=== PATIENT | female | born 1965 | race Caucasian/White ===

== ENCOUNTER 2016-05-25 17:08 | Emergency (ER) | payer MEDICAID ==
[~2016-05-25] VITALS: Ht 162.6 cm; Wt 81.6 kg
[2016-05-25 17:37] LABS: BASOPHILS # (AUTO) 0.1 /CMM (0.0-0.2); BASOPHILS % (AUTO) 1.1 % (0.0-2.0); DIFF TOTAL % 100 %; EOSINOPHILS # (AUTO) 0.1 /CMM (0.0-0.7); EOSINOPHILS % (AUTO) 0.9 % (0.0-6.0); HEMATOCRIT 38 % (33-45); HEMOGLOBIN 13.2 g/dL (11.5-14.8); LYMPHOCYTES # (AUTO) 2.2 /CMM (0.8-4.8); LYMPHOCYTES % (AUTO) 16.5 % (20.0-44.0); MEAN CORPUSCULAR HEMOGLOBIN 32 PG (26.0-33.0); MEAN CORPUSCULAR HGB CONC 35 g/dl (31.0-36.0); MEAN CORPUSCULAR VOLUME 91 fL (82-100); MONOCYTES # (AUTO) 0.7 /CMM (0.1-1.30); MONOCYTES % (AUTO) 5.1 % (2.0-12.0); NEUTROPHILS % (AUTO) 76.4 % (43.0-81.0); PLATELET COUNT (AUTO) 301 /CMM (150-450); RED BLOOD CELL COUNT(AUTO) 4.19 MIL/uL (4.0-5.2); WHITE BLOOD COUNT (AUTO) 13.1 K/uL (4.3-11.0)
[2016-05-25 17:48] LABS: ANION GAP 16 (5-14); CALCIUM, SERUM 9.4 mg/dL (8.5-10.1); CARBON DIOXIDE 26 mmol/L (21-32); CHLORIDE 104 mmol/L (98-107); CREATININE 0.7 mg/dL (0.6-1.3); GFR 88 mL/min (>60); GLUCOSE 100 mg/dL (74-106); SODIUM SERUM 142 mmol/L (136-145); UREA NITROGEN, BLOOD 16 mg/dL (7-18)
[2016-05-25 18:02] LABS: ALANINE AMINOTRANSFERASE 23 U/L (12-78); ALBUMIN 4.4 g/dL (3.4-5.0); ASPARTATE AMINOTRANSFERASE 17 U/L (15-37); BILIRUBIN,TOTAL 0.3 mg/dL (0.2-1.0); SALICYLATE 3.3 mg/dL (2.8-20.0); TOTAL PROTEIN, SERUM 8.5 g/dL (6.4-8.2)
[2016-05-25 18:06] LABS: ACETAMINOPHEN 0 ug/ml (10-30); INDIRECT BILIRUBIN 0.3 mg/dL (0.0-1.1)
[2016-05-25] MEDS ORDERED: diphenhydrAMINE HCL 50 MG/ML VIAL IM ONE ×2 (18:30→19:30)
[2016-05-25] MEDS ORDERED: LORAZEPAM INJ 2 MG/ML VIAL IM ONE ×2 (18:30→19:30)
[2016-05-25] MEDS ORDERED: HALOPERIDOL LACTATE INJ 5 MG/ML VIAL IM ONE (18:30)
[2016-05-25] MEDS ORDERED: LORAZEPAM INJ 2 MG/ML VIAL ONE ×2 (18:44→19:20)
[2016-05-25] MEDS ORDERED: diphenhydrAMINE HCL 50 MG/ML VIAL ONE ×2 (18:44→19:19)
[2016-05-25] MEDS ORDERED: HALOPERIDOL LACTATE INJ 5 MG/ML VIAL ONE (18:44)
[2016-05-25 20:25] LABS: KETONES,URINE Trace (NEGATIVE); LEUKOCYTE ESTERASE ,URINE Negative (NEGATIVE)
[2016-05-25 20:28] LABS: ADD UA MICROSCOPIC YES; PREGNANCY TEST URINE QUAL NEGATIVE (NEGATIVE)
[2016-05-25 20:31] LABS: CANNABINOID, URINE NEGATIVE (NEGATIVE); PHENCYCLIDINE SCREEN,URINE NEGATIVE (NEGATIVE)
[2016-05-25 20:38] LABS: ADD URINE CULTURE NO; RBC,URINE 0-2 /HPF (0-2); WBC,URINE 0-2 /HPF (0-3)
[2016-05-26] MEDS ORDERED: HALOPERIDOL LACTATE INJ 5 MG/ML VIAL IM ONE (02:00)
[2016-05-26] MEDS ORDERED: diphenhydrAMINE HCL 50 MG/ML VIAL IM ONE (02:30)
[2016-05-26] MEDS ORDERED: LORAZEPAM INJ 2 MG/ML VIAL IM ONE (02:30)
[2016-05-26] MEDS ORDERED: LORAZEPAM INJ 2 MG/ML VIAL ONE (02:41)
[2016-05-26] MEDS ORDERED: diphenhydrAMINE HCL 50 MG/ML VIAL ONE (02:41)
[2016-05-26] MEDS ORDERED: HALOPERIDOL LACTATE INJ 5 MG/ML VIAL ONE (02:41)
[2016-05-26] MEDS ORDERED: OLANZAPINE 5 MG TABLET ONE (11:25)
[2016-05-26] MEDS ORDERED: OLANZAPINE 5 MG TABLET PO ONE (11:30)
[2016-05-26 12:28] VITALS: BP 110/79
== END 2016-05-26 12:30 | disposition home or self-care (01) ==
LOC: ER 17:11
DX: B86 Scabies (principal); F79 Unspecified intellectual disabilities; F31.9 Bipolar disorder, unspecified
CPT/HCPCS: 36415; 80048; 80076; 80305; 80329; 81001; 84703; 85025; 96372 ×8; 99284; A4606; G0480 ×2; J1200 ×2; J1630 ×2; J2060 ×2; Z7610; 81000-TC; G6039-TC

== ENCOUNTER 2018-04-17 19:19 | Emergency (ER) | payer BC, MEDICAID ==
[~2018-04-17] VITALS: Ht 157.5 cm; Wt 59.0 kg
[2018-04-17] MEDS: POTASSIUM CL. PREMIX PERIPHER. 50 ML IV SCH ×3 (00:24→23:24)
--- NOTE | 2018-04-17 19:26 | NUR ---
PT [id number] WITH [employer] FOR S/I, NO PLANS, -H/I, PT ACTING BIZARRE, NOT ANSWERING QUESTIONS APPROPRIATELY, RESPIRATIONS EVEN AND UNLABORED, NO SOB, PT ON MONITOR, NAD NOTED, VSS, PENDING ER PROVIDER PAULINO
[2018-04-17 19:54] LABS: BASOPHILS % (AUTO) 0.5 % (0.0-2.0); EOSINOPHILS % (AUTO) 0.9 % (0.0-6.0); HEMATOCRIT 38 % (33-45); HEMOGLOBIN 12.6 g/dL (11.5-14.8); LYMPHOCYTES # (AUTO) 1.7 /CMM (0.8-4.8); LYMPHOCYTES % (AUTO) 18.4 % (20.0-44.0); MEAN CORPUSCULAR HGB CONC 33 g/dl (31.0-36.0); MEAN CORPUSCULAR VOLUME 87 fL (82-100); MONOCYTES # (AUTO) 0.5 /CMM (0.1-1.30); MONOCYTES % (AUTO) 5.8 % (2.0-12.0); NEUTROPHILS # (AUTO) 6.7 /CMM (1.8-8.9); NEUTROPHILS % (AUTO) 74.4 % (43.0-81.0); PLATELET COUNT (AUTO) 467 /CMM (150-450); RED BLOOD CELL COUNT(AUTO) 4.38 MIL/uL (4.0-5.2)
[2018-04-17] MEDS ORDERED: OLANZAPINE 10 MG VIAL IM ONE ×3 (19:57→21:00)
[2018-04-17 20:08] LABS: ALBUMIN 2.7 g/dL (3.4-5.0); BILIRUBIN,TOTAL 0.1 mg/dL (0.2-1.0); CALCIUM, SERUM 8.7 mg/dL (8.5-10.1); CREATININE 0.4 mg/dL (0.6-1.3); SALICYLATE 3.3 mg/dL (2.8-20.0)
[2018-04-17 20:10] LABS: POTASSIUM 2.7 mmol/L (3.5-5.1)
[2018-04-17] MEDS ORDERED: POTASSIUM CHLORIDE 20 MEQ TAB.PRT.SR PO ONE (20:30)
--- NOTE | 2018-04-17 20:50 | NUR ---
URINE COLLECTED AND SENT TO LAB
[2018-04-17] MEDS ORDERED: POTASSIUM CL. PREMIX PERIPHER. 100 ML ONE (20:57)
[2018-04-17 21:00] LABS: APPEARANCE,URINE Slightly Cloudy (CLEAR); BILIRUBIN,URINE Negative (NEGATIVE); BLOOD, URINE Trace-intact Ery/uL (NEGATIVE); COLOR,URINE Yellow (YELLOW); KETONES,URINE Negative (NEGATIVE); LEUKOCYTE ESTERASE ,URINE Small (NEGATIVE); NITRITE, URINE Negative (NEGATIVE); PROTEIN,URINE Negative (NEGATIVE); UGLUCOSE Negative (NEGATIVE)
[2018-04-17] MEDS ORDERED: LORAZEPAM INJ 2 MG/ML VIAL IM ONE (21:00)
[2018-04-17 21:01] LABS: BACTERIA,URINE Few /HPF (None Seen); SQUAMOUS EPITHELIAL CELL,UR Few /HPF (None Seen)
[2018-04-17 21:02] LABS: MUCUS,URINE Few /LPF (None Seen)
[2018-04-17] MEDS ORDERED: POTASSIUM CL. PREMIX PERIPHER. 50 ML ONE ×2 (21:15→23:23)
[2018-04-17] MEDS ORDERED: LORAZEPAM INJ 2 MG/ML VIAL ONE (21:22)
--- NOTE | 2018-04-17 21:24 | NUR ---
PT REFUSED TO TAKE ANY PO MEDS, MARSII TRANSIT MIXER OPERATOR MADE AWARE. PER MARSII WILL CHANGE TO IVPB INSTEAD
--- NOTE | 2018-04-17 22:24 | NUR ---
Patient is resting comfortably in bed with eyes closed. Easily aroused. VSS
--- NOTE | 2018-04-17 23:31 | NUR ---
REPORT GIVEN TO ADRI MA FOR VEGA
[2018-04-18] MEDS: POTASSIUM CL. PREMIX PERIPHER. 50 ML IV SCH (00:40)
[2018-04-18 03:29] LABS: CALCIUM, SERUM 8.6 mg/dL (8.5-10.1); CREATININE 0.5 mg/dL (0.6-1.3); POTASSIUM 3.7 mmol/L (3.5-5.1)
[2018-04-18 06:28] VITALS: BP 112/78
== END 2018-04-18 06:29 | disposition home or self-care (01) ==
LOC: ER 19:20 → EDBD 19:20 → ER 04-18 06:29
DX: E87.6 Hypokalemia (principal); N39.0 Urinary tract infection, site not specified; F31.9 Bipolar disorder, unspecified; F19.10 Other psychoactive substance abuse, uncomplicated; R19.02 Left upper quadrant abdominal swelling, mass and lump; M54.5 Low back pain; G89.29 Other chronic pain; I10 Essential (primary) hypertension; J45.909 Unspecified asthma, uncomplicated; F29 Unspecified psychosis not due to a substance or known physiological condition; R00.1 Bradycardia, unspecified; F12.10 Cannabis abuse, uncomplicated; Z88.2 Allergy status to sulfonamides; Z59.0 Homelessness
CPT/HCPCS: 36415 ×2; 80048 ×2; 80076; 80305; 80329; 81001; 85025; 87077; 87086; 87186; 93005; 96365; 96366; 96372 ×3; 99284; A4606; G0480 ×2; J2060; J3480 ×3; J3490; J7030; Z7610; 81000-TC